=== PATIENT | female | born 1960 ===

== ENCOUNTER 2021-04-19 16:10 | Inpatient (IN) | payer OTHER ==
[~2021-04-19] VITALS: Ht 160 cm; Wt 79.4 kg
[2021-04-19] MEDS ORDERED: COZAAR100 MG (16:38)
[2021-04-19] MEDS ORDERED: ELIQUIS5 MG (16:38)
--- NOTE | 2021-04-19 16:38 | NUR ---
SE RECIBE PTE ALERTA Y ORIENTADA X 3 ESFERAS EN [place] EN COMPANIA DE FAMILIAR EL CUAL REFIERE QUE PTE DESDE EL RADHA PRESENTA DEBILIDAD, DIFICULTAD AL CAMINAR, HEMIPARESIS DEL LADO DERECHO Y DIFICULTAD AL HABLAR. FAMILIAR REFIERE QUE PTE [facility] E[facility] [place]. FAMILIAR REFIERE QUE PTE CONTINUA CON LOS SINTOMAS.
[2021-04-19] MEDS ORDERED: LANTUS SOL100 UNIT/1 (16:39)
[2021-04-19] MEDS ORDERED: ADULT LOW DOSE81 M1 (16:39)
[2021-04-19] MEDS ORDERED: ATORVASTATIN CA10 MG (16:39)
[2021-04-19] MEDS ORDERED: METFORMIN HCL1000 MG (16:39)
[2021-04-25] MEDS ORDERED: Lipitor 10MG TABLET PO (07:20)
[2021-04-25] MEDS ORDERED: NORVASC2.5 M1 PO (07:20)
[2021-04-25] MEDS ORDERED: GABAPENTIN300 MG PO (07:20)
[2021-04-25] MEDS ORDERED: METFORMIN HCL1000 MG PO (07:20)
[2021-04-25] MEDS ORDERED: CILOSTAZOL50 MG PO (07:20)
[2021-04-25] MEDS ORDERED: SERTRALINE HCL50 MG PO (07:20)
[2021-04-25] MEDS ORDERED: RESTORIL15 MG PO (07:20)
[2021-04-25] MEDS ORDERED: INTESTINEX680 M1 PO (07:20)
[2021-04-25] MEDS ORDERED: CLOPIDOGREL BIS75 MG PO (07:20)
[2021-04-25] MEDS ORDERED: LOSARTAN POTASS50 MG PO (07:20)
[2021-04-25] MEDS ORDERED: FAMOTIDINE20 MG PO (07:20)
== END 2021-04-25 18:04 | DRG 64 ==
LOC: ER 16:10 → SURH 18:12
PROVIDERS: ADMIT Internal Medicine Cardiovascular Disease; ATTEND Internal Medicine Cardiovascular Disease
PROC: 4A033R1 Measurement of Arterial Saturation, Peripheral, Percutaneous Approach (ICD-10-PCS; principal; 2021-04-19)
PROC: B44HZZZ Ultrasonography of Bilateral Lower Extremity Arteries (ICD-10-PCS; 2021-04-20)
PROC: B345ZZZ Ultrasonography of Bilateral Common Carotid Arteries (ICD-10-PCS; 2021-04-20)
PROC: B348ZZZ Ultrasonography of Bilateral Internal Carotid Arteries (ICD-10-PCS; 2021-04-20)
PROC: B030ZZZ Magnetic Resonance Imaging (MRI) of Brain (ICD-10-PCS; 2021-04-21)
PROC: BW40ZZZ Ultrasonography of Abdomen (ICD-10-PCS; 2021-04-24)
DX: I63.81 Other cerebral infarction due to occlusion or stenosis of small artery (principal); I63.219 Cerebral infarction due to unspecified occlusion or stenosis of unspecified vertebral artery; I63.22 Cerebral infarction due to unspecified occlusion or stenosis of basilar artery; G81.91 Hemiplegia, unspecified affecting right dominant side; A04.9 Bacterial intestinal infection, unspecified; F33.9 Major depressive disorder, recurrent, unspecified; K52.9 Noninfective gastroenteritis and colitis, unspecified; K80.20 Calculus of gallbladder without cholecystitis without obstruction; E78.00 Pure hypercholesterolemia, unspecified; I25.10 Atherosclerotic heart disease of native coronary artery without angina pectoris; I10 Essential (primary) hypertension; E11.8 Type 2 diabetes mellitus with unspecified complications; B19.20 Unspecified viral hepatitis C without hepatic coma; Z20.822 Contact with and (suspected) exposure to COVID-19; E11.65 Type 2 diabetes mellitus with hyperglycemia; Z86.73 Personal history of transient ischemic attack (TIA), and cerebral infarction without residual deficits; Z95.2 Presence of prosthetic heart valve
CPT/HCPCS: 70551